=== PATIENT | female | born 1955 | race Caucasian/White ===

== ENCOUNTER → 2018-08-25 | Outpatient (CLI) | payer OTHER ==
--- NOTE | 2018-08-25 14:52 | Diagnostic Imaging Report ---
EXAM: BONE MINERAL DENSITY HISTORY: Bone mineralization evaluation COMPARISON: None DISCUSSION: Evaluation of the left hip and lumbar spine was performed utilizing DEXA Hologic bone densitometer. The study is technically adequate. Left hip femoral neck bone mineral density: 0.86 g/cm2, T-score is 0.1, Z-score is 1.4. Left hip total bone mineral density: 1.05 g/cm2, T-score is 0.9, Z-score is 1.9. Lumbar spine total bone mineral density: 1.19 gm/cm2, T-score is 1.3, Z-score is 2.8. Impression: Bone mineralization by WHO Classification is normal, the fracture risk is not increased. Signed by: Dr. Luis Anderson M.D. on 08/25/2018 2:49 PM
== END ==
LOC: DX 13:38
PROVIDERS: ATTEND Internal Medicine
DX: Z12.31 Encounter for screening mammogram for malignant neoplasm of breast (principal); M89.9 Disorder of bone, unspecified
CPT/HCPCS: 77067; 77080

== ENCOUNTER → 2019-06-04 | Day surgery (SDC) | payer OTHER ==
[~2019-06-04] MED LIST: CENTRUM SILVER1 EAC5 PO; CITALOPRAM HBR20 MG PO; HYOSCYAMINE 0.125 MG TAB ONE; MIDAZOLAM HCL 2 MG/2 ML VIAL ONE; PROPOFOL IV EMULSION 10 MG/ML 50 ML VIAL ONE; SIMVASTATIN20 MG PO
--- OUTSIDE RECORDS SUMMARY | 2019-06-04 10:02 | XMS REPORT ---
Author Author [facility] Address Unknown Phone Unavailable Care Team Providers Care Content Assistant Name Role Phone CONNIE CAI Unavailable Unavailable Problems This patient has no known problems. Allergies, Adverse Reactions, Alerts This patient has no known allergies or adverse reactions. Medications This patient has no known medications. Results Test Description Test Time Test Comments Text Results Atomic Results Result Comments BONE DXA DUAL ENERGY 2018-08-25 14:46:00 [place] [address] Patient Name: DAVID POOL MR #: [id number] : 1955 Age/Sex: 63/F Req #: [id number] [facility] Physician: Ordered by: CONNIE CAI MD Report #: [id number] Location: DX Room/Bed: Procedure: [id number] DX/BONE DXA DUAL ENERGY Exam Date: Exam Time: REPORT STATUS: Signed EXAM: BONE MINERAL DENSITY HISTORY: Bone mineralization evaluation COMPARISON: None DISCUSSION: Evaluation of the left hip and lumbar spine was performed utilizing DEXA Hologic bone densitometer. The study is technically adequate. Left hip femoral neck bone mineral density: 0.86 g/cm2, T-score is 0.1, Z-score is 1.4. Left hip total bone mineral density: 1.05 g/cm2, T-score is 0.9, Z-score is 1.9. Lumbar spine total bone mineral density: 1.19 gm/cm2, T-score is 1.3, Z-score is 2.8. Impression: Bone mineralization by WHO Classification is normal, the fracture risk is not increased. Signed by: Dr. Sayda Anand M.D. on 08/25/2018 2:49 PM Dictated By: SAYDA ANAND MD 48 Transcribed By: JAS on 08/25/181448 COPY TO: CONNIE CAI MD MAMMOGRAPHY DIGITAL SCR BILAT 2018-08-25 14:39:00 [place] [address] Patient Name: DAVID POOL MR #: [id number] : 1955 Age/Sex: 63/F Req #: [id number] Adm Physician: Ordered by: CONNIE CAI MD Report #: [id number] Location: DX Room/Bed: Procedure: [id number] MG/MAMMOGRAPHY DIGITAL SCR BILAT Exam Date: 08/25/18 Exam Time: 1345 REPORT STATUS: Signed #[id number] - [id number] #BILATERAL DIGITAL SCREENING MAMMOGRAM WITH CAD: 08/25/2018 CLINICAL: Routine screening. No prior exams were available for comparison. Current study contains 5 films. There are scattered fibroglandular elements in both breasts. Current study was also evaluated with a Computer Aided Detection (CAD) system. There are benign calcifications in both breasts. There also are post operative findings in the right breast with a scar marker present in the upper inner aspect. No significant masses, calcifications, or other findings are seen in either breast. IMPRESSION: BENIGN There is no mammographic evidence of malignancy. A 1 year screening mammogram is recommended. The patient will be notified by letter of the results. Mary Beth Navarrete Jr., D.O. cw/:09/09/2018 08:06:55 Production Specialist: Nadia ELR)(M), [facility] letter sent: Normal Exam Mammogram BI-RADS: 2 Benign Dictated By: MARY BETH NAVARRETE DO 5 Transcribed By: SIMRAN on 09/09/18805 COPY TO: CONNIE CAI MD
[2019-06-04 12:50] VITALS: BP 123/88
--- NOTE | 2019-06-04 17:35 | Operative Report ---
DATE OF PROCEDURE: 06/04/2019 SURGEON: Shahid Florian MD PROCEDURE: Colonoscopy with polypectomy. INDICATIONS FOR COLONOSCOPY: Colorectal cancer screening. MEDICATIONS: The patient was done under MAC, please see anesthesiologist's note. PROCEDURE IN DETAIL: With the patient in left lateral decubitus position, the flexible fiberoptic Olympus colonoscope was inserted into the rectum with ease and advanced all the way to the cecum. Mucosa overlying the cecum appeared to be within normal limits. The scope was then withdrawn slowly and one polyp was removed per cold snare polypectomy from the proximal ascending colon. An approximately 1 cm submucosal lesion with yellowish over hue suspicious for lipoma was noted in the proximal transverse colon and that was biopsied. The descending colon appeared to be within normal limits as well as the sigmoid. One polyp approximately 6 mm sessile was removed per cold snare polypectomy from the proximal rectum and three additional polyps in the rectum were hot biopsied. The scope was then retroflexed into the distal rectum and small internal hemorrhoids were noted, none of which was actively bleeding. The scope was then straightened out, it was subsequently withdrawn, and the patient tolerated the procedure well. IMPRESSION: 1. Ascending colon polyp removed per cold snare polypectomy. 2. Rule out lipoma, proximal transverse colon. 3. Rectal polyps x4, one snared and three hot biopsied. 4. Internal hemorrhoids, none actively bleeding. PLAN: Follow up histology. Initiate high-fiber, low-fat diet. Initiate high-fiber supplement. The patient might benefit from a followup colonoscopy in 3 years. Shahid Florian MD [facility] [place] /[id number] cc: Darshan Franklin MD
== END | disposition home or self-care (01) ==
LOC: OR 09:41
PROVIDERS: ATTEND Internal Medicine Gastroenterology
DX: Z12.11 Encounter for screening for malignant neoplasm of colon (principal); D12.2 Benign neoplasm of ascending colon; K62.1 Rectal polyp; D17.5 Benign lipomatous neoplasm of intra-abdominal organs; K64.8 Other hemorrhoids; K59.09 Other constipation; I10 Essential (primary) hypertension; E78.5 Hyperlipidemia, unspecified; Z01.810 Encounter for preprocedural cardiovascular examination
CPT/HCPCS: 45380; 45384; 45385; 93005; J2250

== ENCOUNTER → 2020-01-05 | Outpatient (CLI) | payer OTHER ==
[~2020-01-05] MED LIST changes: -HYOSCYAMINE 0.125 MG TAB ONE; -MIDAZOLAM HCL 2 MG/2 ML VIAL ONE; -PROPOFOL IV EMULSION 10 MG/ML 50 ML VIAL ONE
--- NOTE | 2020-01-06 11:24 | Diagnostic Imaging Report ---
Exam: Bone mineral density study. History: Osteopenia. Comparison: 08/25/2018 Discussion: Evaluation of the left hip and lumbar spine was performed utilizing DEXA Hologic bone densitometer. The study is technically adequate. Left hip total bone mineral density: 1.014gm/cm2, T-score is 0.6, Z-score is 1.7. Left hip femoral neck bone mineral density: 0.819gm/cm2, T-score is -0.3, Z-score is 1.1. Lumbar spine total bone mineral density:1.175gm/cm2, T-score is1.2, Z-score is 2.8. Impression: 1. Normal bone mineral density of the left hip, fracture risk is not increased. 2. Normal bone mineral density of the lumbar spine, fracture risk is not increased. The BMD change versus baseline is -3.1% and the BMD change versus previous -3.1% . Least significant change (LSC) for bone mineral density as provided by poultry processing supervisor is 0.023 g/cm2 for lumbar spine and 0.027 g/cm2 for total hip. 10 -year fracture risk per WHO Fracture Risk Assessment Tool (FRAX) for: Not reported because all T-scores at or above -1.0 The patient's fracture risk is compared to an age-matched control. Medical evaluation for secondary causes of low bone bone mineral density may be appropriate. Correlate clinically for the necessity and timing of the next bone mineral density study. Signed by: Dr. Carlos Aguilar M.D. on 01/06/2020 11:20 AM
== END ==
LOC: MAMMO 13:41
PROVIDERS: ATTEND Internal Medicine
DX: Z12.31 Encounter for screening mammogram for malignant neoplasm of breast (principal); M89.9 Disorder of bone, unspecified
CPT/HCPCS: 77067; 77080

== ENCOUNTER → 2021-08-08 | Outpatient (CLI) | payer OTHER | LOC: MAMMO 10:07 | PROVIDERS: ATTEND Internal Medicine | DX: Z12.31 Encounter for screening mammogram for malignant neoplasm of breast (principal) | CPT/HCPCS: 77067 ==

== ENCOUNTER → 2022-08-21 | Outpatient (CLI) | payer MEDICARE | LOC: MAMMO 08:44 | PROVIDERS: ATTEND Internal Medicine | DX: Z12.31 Encounter for screening mammogram for malignant neoplasm of breast (principal) | CPT/HCPCS: 77067 ==

== ENCOUNTER → 2024-09-22 | Day surgery (SDC) | payer MEDICARE, OTHER ==
[2024-09-14 08:41] LABS: BASOPHILS % 0.6 % (0.0-1.0); EOSINOPHILS # (AUTO) 0.1 (0.0-0.4); EOSINOPHILS % 1.9 % (0.0-6.0); HEMATOCRIT 42.5 % (34.2-44.1); HEMOGLOBIN 14.1 g/dL (12.0-16.0); LYMPHOCYTES # (AUTO) 1.9 (1.0-3.2); LYMPHOCYTES % 35.4 % (18.0-39.1); MEAN CORPUSCULAR HEMOGLOBIN 31.5 pg (28-32); MEAN CORPUSCULAR HGB CONC 33.2 g/dL (31-35); MEAN CORPUSCULAR VOLUME 95.1 fL (81-99); MONOCYTES # (AUTO) 0.3 (0.2-0.8); MONOCYTES % 5.3 % (4.4-11.3); NEUTROPHILS % 56.2 % (38.7-80.0); PLATELET COUNT 179 x10e3/uL (140-360); RED BLOOD COUNT 4.47 x10e6/uL (3.6-5.1); RED CELL DISTRIBUTION WIDTH 12.5 % (11.7-14.4); WHITE BLOOD COUNT 5.31 x10e3/uL (4.8-10.8)
[~2024-09-22] MED LIST changes: +GLUCAGON FOR INJ 1 MG VIAL ONE; +HYOSCYAMINE SULFATE 0.5 MG/ML INJ ONE; +LIDOCAINE HCL 2% LOCAL INJ 5 ML SDV VIAL INJ ONE; +PROPOFOL IV EMULSION 50 ML IV ONE
[2024-09-22] MEDS: LACTATED RINGER'S 1,000 ML ONE (06:02)
[2024-09-22 08:20] VITALS: TEMP 98.1
[2024-09-22 08:50] VITALS: BP 129/89; PULSE 78; RESP 16; O2SAT 99
== END | disposition home or self-care (01) ==
LOC: OR 05:35
PROVIDERS: ATTEND Internal Medicine Gastroenterology
DX: Z09 Encounter for follow-up examination after completed treatment for conditions other than malignant neoplasm (principal); K63.5 Polyp of colon; K59.00 Constipation, unspecified; I10 Essential (primary) hypertension; E66.01 Morbid (severe) obesity due to excess calories; Z01.810 Encounter for preprocedural cardiovascular examination; Z01.812 Encounter for preprocedural laboratory examination
CPT/HCPCS: 36415; 45385; 85025; 88305; 93005; J1610; J1980; J2003; J2704; J7121; 45378

== ENCOUNTER → 2025-03-23 | Outpatient (REF) | payer MEDICARE ==
[~2025-03-23] MED LIST changes: -GLUCAGON FOR INJ 1 MG VIAL ONE; -HYOSCYAMINE SULFATE 0.5 MG/ML INJ ONE; -LIDOCAINE HCL 2% LOCAL INJ 5 ML SDV VIAL INJ ONE; -PROPOFOL IV EMULSION 50 ML IV ONE
== END ==
LOC: MAMMO 09:33
PROVIDERS: ATTEND Family Medicine
DX: Z12.31 Encounter for screening mammogram for malignant neoplasm of breast (principal); Z13.820 Encounter for screening for osteoporosis; Z78.0 Asymptomatic menopausal state
CPT/HCPCS: 77067; 77080